=== PATIENT | male | born 1975 | race Caucasian/White ===

== ENCOUNTER 2018-02-01 09:40 | Inpatient (IN) | payer OTHER ==
[~2018-02-01] VITALS: Ht 188 cm; Wt 120.0 kg
[2018-02-01 11:01] LABS: BASOPHILS # (AUTO) 0.03 x10^3/uL (0-0.1); BASOPHILS % (AUTO) 1 % (0-1); EOSINOPHILS # (AUTO) 0.47 x10^3/uL (0-0.4); EOSINOPHILS % (AUTO) 13 % (1-7); LYMPHOCYTES # (AUTO) 0.97 x10^3/uL (1-3.4); LYMPHOCYTES % (AUTO) 27 % (22-44); MD NO; MEAN CORPUSCULAR HEMOGLOBIN 30.5 pg (27.5-34.5); MEAN CORPUSCULAR HGB CONC 34.4 g/dL (33.2-36.2); MEAN CORPUSCULAR VOLUME 88.8 fL (81-97); MEAN PLATELET VOLUME 8.3 fL (7.4-10.4); MONOCYTES # (AUTO) 0.45 x10^3/uL (0.2-0.8); MONOCYTES % (AUTO) 12 % (2-9); NEUTROPHILS # (AUTO) 1.75 x10^3/uL (1.8-6.8); NEUTROPHILS % (AUTO) 48 % (42-75); PLATELET COUNT 196 x10^3/uL (130-400); RED BLOOD COUNT 4.94 x10^6/uL (4.38-5.82); RED CELL DISTRIBUTION WIDTH 12.3 % (9.4-14.8)
[2018-02-01 11:08] LABS: INTERNATIONAL NORMALIZED RATIO 0.9 (0.93-1.1); PROTHROMBIN TIME 9.4 Seconds (9.6-11.5)
[2018-02-01 11:13] LABS: ALANINE AMINOTRANSFERASE 199 U/L (12-78); ALBUMIN 3.8 g/dL (3.4-5.0); ANION GAP 7 mmol/L (5-15); CALCIUM 8.8 mg/dL (8.5-10.1); CHLORIDE 108 mmol/L (98-107)
[2018-02-01 11:19] LABS: ALKALINE PHOSPHATASE 137 U/L (45-117); BILIRUBIN,TOTAL 4.7 mg/dL (0.2-1.0); TOTAL PROTEIN 7.4 g/dL (6.4-8.2)
[2018-02-01] MEDS ORDERED: CEFOTETAN PMX 1GM/50ML 50 ML ONE (12:48)
[2018-02-01] MEDS ORDERED: CEFOTETAN PMX 1GM/50ML 50 ML IV ONE (13:00)
[2018-02-01] MEDS ORDERED: ONDANSETRON 2MG/ML, 2ML IVPush PRN (14:00)
[2018-02-01] MEDS ORDERED: hydrALAzine 20 MG/ML, 1ML IVPush PRN (14:00)
[2018-02-01] MEDS ORDERED: morphine SULFATE 10 MG/ML, 1ML IVPush PRN (14:00)
[2018-02-01 14:08] VITALS: BP 140/90
[2018-02-01] MEDS: D5%-0.45NACL+KCL 20MEQ 1,000 ML IV SCH (16:21)
[2018-02-01 19:09] VITALS: BP 129/85
[2018-02-01] MEDS ORDERED: DIPHENHYDRAMINE 50 MG/ML, 1ML IVPush ONE (23:00)
[2018-02-02] MEDS: D5%-0.45NACL+KCL 20MEQ 1,000 ML IV SCH (02:10)
[2018-02-02 02:38] VITALS: BP 127/81
[2018-02-02 05:27] LABS: BASOPHILS # (AUTO) 0.04 x10^3/uL (0-0.1); BASOPHILS % (AUTO) 1 % (0-1); EOSINOPHILS # (AUTO) 0.51 x10^3/uL (0-0.4); EOSINOPHILS % (AUTO) 13 % (1-7); LYMPHOCYTES # (AUTO) 1.36 x10^3/uL (1-3.4); LYMPHOCYTES % (AUTO) 34 % (22-44); MD NO; MEAN CORPUSCULAR HEMOGLOBIN 30.7 pg (27.5-34.5); MEAN CORPUSCULAR HGB CONC 34.3 g/dL (33.2-36.2); MEAN CORPUSCULAR VOLUME 89.3 fL (81-97); MONOCYTES # (AUTO) 0.49 x10^3/uL (0.2-0.8); MONOCYTES % (AUTO) 12 % (2-9); NEUTROPHILS # (AUTO) 1.62 x10^3/uL (1.8-6.8); NEUTROPHILS % (AUTO) 40 % (42-75); PLATELET COUNT 174 x10^3/uL (130-400); RED BLOOD COUNT 4.38 x10^6/uL (4.38-5.82); RED CELL DISTRIBUTION WIDTH 12.2 % (9.4-14.8)
[2018-02-02 05:39] LABS: CHLORIDE 111 mmol/L (98-107)
[2018-02-02 05:52] LABS: ALANINE AMINOTRANSFERASE 167 U/L (12-78); ALBUMIN 3.3 g/dL (3.4-5.0); ALKALINE PHOSPHATASE 123 U/L (45-117); ANION GAP 8 mmol/L (5-15); BILIRUBIN,TOTAL 4.8 mg/dL (0.2-1.0); CALCIUM 8.6 mg/dL (8.5-10.1); TOTAL PROTEIN 6.4 g/dL (6.4-8.2)
[2018-02-02 06:43] VITALS: BP 126/83
[2018-02-02] MEDS: SODIUM CHLORIDE FLUSH 10ML SYR IVF SCH (12:30)
[2018-02-02 14:04] VITALS: BP 131/86
[2018-02-02] MEDS ORDERED: BUPIVACAINE/PF 0.5% ONE (16:35)
[2018-02-02] MEDS ORDERED: EPINEPHRINE 1 MG/ML, 1ML ONE (16:35)
[2018-02-02] MEDS ORDERED: MIDAZOLAM 1 MG/ML, 2ML ONE (16:54)
[2018-02-02] MEDS ORDERED: FENTANYL PF 250 MCG/5ML ONE (16:54)
[2018-02-02] MEDS ORDERED: CEFOTETAN 2 GM ONE (17:38)
[2018-02-02] MEDS ORDERED: ROCURONIUM 10 MG/ML,10ML ONE (17:38)
[2018-02-02] MEDS ORDERED: FENTANYL PF 100 MCG/2ML IV PRN (18:00)
[2018-02-02] MEDS ORDERED: PROMETHAZINE 25 MG/ML, 1ML IV PRN (18:00)
[2018-02-02] MEDS ORDERED: MORPHINE SULFATE 4 MG/ML, 1ML IVPush PRN (18:00)
[2018-02-02] MEDS ORDERED: HYDROcodone/APAP 7.5-325MG/15ML UDC PO PRN (18:00)
[2018-02-02] MEDS ORDERED: OXYcodone 5 MG/5 ML ORAL.SOL UDC PO PRN (18:00)
[2018-02-02] MEDS ORDERED: ACETAMINOPHEN 325 MG TABLET PO PRN (18:00)
[2018-02-02] MEDS ORDERED: ONDANSETRON ODT 8 MG PO PRN (18:00)
[2018-02-02] MEDS ORDERED: MEPERIDINE/PF 25MG/0.5ML IVPush PRN (18:00)
[2018-02-02] MEDS ORDERED: BUPIVACAINE/PF 0.5% INFIL ONE (18:07)
[2018-02-02] MEDS ORDERED: EPINEPHRINE 1 MG/ML, 1ML INFIL ONE (18:08)
[2018-02-02] MEDS ORDERED: ONDANSETRON 2MG/ML, 2ML ONE (18:18)
[2018-02-02] MEDS ORDERED: NEOSTIGMINE 1 MG/ML, 10ML ONE (18:18)
[2018-02-02] MEDS ORDERED: SUCCINYLCHOLINE 20 MG/ML, 10ML ONE (18:18)
[2018-02-02] MEDS ORDERED: CEFAZOLIN 1,000 MG ONE (18:18)
[2018-02-02] MEDS ORDERED: DEXAMETHASONE 4 MG/ML, 1ML ONE (18:18)
[2018-02-02] MEDS ORDERED: PROPOFOL 10 MG/ML, 20ML ONE (18:18)
[2018-02-02] MEDS ORDERED: GLYCOPYRROLATE 0.2MG/1ML, 5ML ONE (18:18)
[2018-02-02] MEDS ORDERED: PROMETHAZINE 25 MG/ML, 1ML IM PRN (18:30)
[2018-02-02] MEDS ORDERED: morphine SULFATE 10 MG/ML, 1ML IV PRN (18:30)
[2018-02-02] MEDS ORDERED: hydrALAzine 20 MG/ML, 1ML IV PRN (18:30)
[2018-02-02] MEDS ORDERED: ENALAPRILAT 1.25 MG/ML, 2ML IV PRN (18:30)
[2018-02-02] MEDS ORDERED: LORazepam 2 MG/ML, 1ML IV PRN (18:30)
[2018-02-02] MEDS ORDERED: PROMETHAZINE 12.5 MG SUPP PR PRN (18:30)
[2018-02-02] MEDS ORDERED: DIPHENHYDRAMINE 25 MG CAPSULE PO PRN (18:30)
[2018-02-02] MEDS ORDERED: ONDANSETRON 2MG/ML, 2ML IVPush PRN (18:30)
[2018-02-02] MEDS ORDERED: LORazepam 1MG TABLET PO PRN (18:30)
[2018-02-02] MEDS ORDERED: DIPHENHYDRAMINE 50 MG/ML, 1ML IV PRN (18:30)
[2018-02-02] MEDS ORDERED: OXYcodone 5 MG/5 ML ORAL.SOL UDC ONE (18:35)
[2018-02-02] MEDS ORDERED: FENTANYL PF 100 MCG/2ML ONE (18:35)
[2018-02-02 19:32] VITALS: BP 150/100
[2018-02-02] MEDS: FAMOTIDINE 20 MG/2 ML IV SCH (20:18)
[2018-02-02] MEDS: OXYcodone 5 MG/5 ML ORAL.SOL UDC PO PRN (21:46)
[2018-02-03 00:39] VITALS: BP 141/98
[2018-02-03] MEDS: LACTATED RINGERS 1,000 ML IV SCH ×3 (01:12→20:02)
[2018-02-03] MEDS: OXYcodone 5 MG/5 ML ORAL.SOL UDC PO PRN ×2 (03:19→18:05)
[2018-02-03 05:36] LABS: BASOPHILS # (AUTO) 0.03 x10^3/uL (0-0.1); BASOPHILS % (AUTO) 0 % (0-1); EOSINOPHILS # (AUTO) 0.02 x10^3/uL (0-0.4); EOSINOPHILS % (AUTO) 0 % (1-7); LYMPHOCYTES # (AUTO) 0.83 x10^3/uL (1-3.4); LYMPHOCYTES % (AUTO) 10 % (22-44); MD NO; MEAN CORPUSCULAR HEMOGLOBIN 30.9 pg (27.5-34.5); MEAN CORPUSCULAR HGB CONC 34.4 g/dL (33.2-36.2); MEAN PLATELET VOLUME 8.3 fL (7.4-10.4); MONOCYTES # (AUTO) 0.38 x10^3/uL (0.2-0.8); MONOCYTES % (AUTO) 5 % (2-9); NEUTROPHILS # (AUTO) 7.31 x10^3/uL (1.8-6.8); NEUTROPHILS % (AUTO) 85 % (42-75); PLATELET COUNT 198 x10^3/uL (130-400); RED BLOOD COUNT 4.71 x10^6/uL (4.38-5.82); RED CELL DISTRIBUTION WIDTH 12.1 % (9.4-14.8)
[2018-02-03 05:39] LABS: ALANINE AMINOTRANSFERASE 339 U/L (12-78); ALBUMIN 3.4 g/dL (3.4-5.0); ANION GAP 10 mmol/L (5-15); CALCIUM 8.6 mg/dL (8.5-10.1); CHLORIDE 105 mmol/L (98-107); CREATININE 0.87 mg/dL (0.7-1.3)
[2018-02-03 05:45] LABS: BILIRUBIN,TOTAL 6.8 mg/dL (0.2-1.0)
[2018-02-03 05:46] LABS: ALKALINE PHOSPHATASE 131 U/L (45-117); TOTAL PROTEIN 6.8 g/dL (6.4-8.2)
[2018-02-03] MEDS: FAMOTIDINE 20 MG/2 ML IV SCH ×2 (07:46→20:02)
[2018-02-03 07:49] VITALS: BP 154/94
[2018-02-03] MEDS: SODIUM CHLORIDE FLUSH 10ML SYR IVF SCH ×2 (09:00→20:00)
[2018-02-03] MEDS ORDERED: ACETAMINOPHEN 325 MG TABLET PO PRN (10:30)
[2018-02-03 14:05] VITALS: BP 161/104
[2018-02-03 18:55] VITALS: BP 150/97
[2018-02-03 21:14] VITALS: BP 151/94
[2018-02-03] MEDS: IBUPROFEN 200 MG TABLET PO PRN ×2 (22:29→23:09)
[2018-02-04 01:14] VITALS: BP 144/82
[2018-02-04] MEDS: LACTATED RINGERS 1,000 ML IV SCH ×3 (04:25→20:07)
[2018-02-04 05:11] LABS: ALANINE AMINOTRANSFERASE 488 U/L (12-78); ALBUMIN 3.2 g/dL (3.4-5.0); ANION GAP 7 mmol/L (5-15); BILIRUBIN, DIRECT 5.2 mg/dL (0.1-0.2); CALCIUM 8.5 mg/dL (8.5-10.1); CHLORIDE 105 mmol/L (98-107); CREATININE 0.81 mg/dL (0.7-1.3)
[2018-02-04 05:12] LABS: ALKALINE PHOSPHATASE 157 U/L (45-117); BILIRUBIN,INDIRECT 1.5 mg/dL (0.0-2.0); BILIRUBIN,TOTAL 6.7 mg/dL (0.2-1.0); TOTAL PROTEIN 6.2 g/dL (6.4-8.2)
[2018-02-04 05:14] LABS: BASOPHILS # (AUTO) 0.02 x10^3/uL (0-0.1); BASOPHILS % (AUTO) 0 % (0-1); EOSINOPHILS # (AUTO) 0.21 x10^3/uL (0-0.4); EOSINOPHILS % (AUTO) 3 % (1-7); LYMPHOCYTES % (AUTO) 16 % (22-44); MD NO; MEAN CORPUSCULAR HEMOGLOBIN 31.1 pg (27.5-34.5); MEAN CORPUSCULAR HGB CONC 34.2 g/dL (33.2-36.2); MEAN CORPUSCULAR VOLUME 90.7 fL (81-97); MEAN PLATELET VOLUME 8.4 fL (7.4-10.4); MONOCYTES # (AUTO) 0.44 x10^3/uL (0.2-0.8); MONOCYTES % (AUTO) 6 % (2-9); NEUTROPHILS # (AUTO) 5.11 x10^3/uL (1.8-6.8); NEUTROPHILS % (AUTO) 74 % (42-75); PLATELET COUNT 180 x10^3/uL (130-400); RED CELL DISTRIBUTION WIDTH 12.5 % (9.4-14.8)
[2018-02-04 08:10] VITALS: BP 157/90
[2018-02-04] MEDS: FAMOTIDINE 20 MG/2 ML IV SCH ×2 (08:14→20:07)
[2018-02-04] MEDS: SODIUM CHLORIDE FLUSH 10ML SYR IVF SCH ×2 (08:14→20:07)
[2018-02-04] MEDS ORDERED: LABETALOL 5MG/ML, 20ML IVPush PRN (09:30)
[2018-02-04 10:37] VITALS: BP 167/105
[2018-02-04 12:41] LABS: % IRON SATURATION 16 % (20-55); IRON LEVEL 41 mcg/dL (65-175); TOTAL IRON BINDING CAPACITY 253 mcg/dL (250-450)
[2018-02-04 12:48] LABS: ACETAMINOPHEN < 2 mcg/mL (10-30)
[2018-02-04 13:56] VITALS: BP 168/116
[2018-02-04 16:00] LABS: INTERNATIONAL NORMALIZED RATIO 0.93 (0.93-1.1); PROTHROMBIN TIME 9.7 Seconds (9.6-11.5)
[2018-02-04 19:00] VITALS: BP 171/104
[2018-02-04] MEDS: IBUPROFEN 200 MG TABLET PO PRN (20:07)
[2018-02-04 21:24] VITALS: BP 165/93
[2018-02-05 00:30] VITALS: BP 154/101
[2018-02-05 00:38] VITALS: BP 142/94
[2018-02-05] MEDS: LACTATED RINGERS 1,000 ML IV SCH ×2 (04:24→12:30)
[2018-02-05 05:29] LABS: BASOPHILS # (AUTO) 0.05 x10^3/uL (0-0.1); BASOPHILS % (AUTO) 1 % (0-1); EOSINOPHILS # (AUTO) 0.39 x10^3/uL (0-0.4); EOSINOPHILS % (AUTO) 8 % (1-7); LYMPHOCYTES # (AUTO) 1.39 x10^3/uL (1-3.4); LYMPHOCYTES % (AUTO) 28 % (22-44); MD NO; MEAN CORPUSCULAR HEMOGLOBIN 30.4 pg (27.5-34.5); MEAN CORPUSCULAR HGB CONC 33.8 g/dL (33.2-36.2); MEAN CORPUSCULAR VOLUME 89.9 fL (81-97); MEAN PLATELET VOLUME 8.3 fL (7.4-10.4); MONOCYTES # (AUTO) 0.39 x10^3/uL (0.2-0.8); MONOCYTES % (AUTO) 8 % (2-9); NEUTROPHILS % (AUTO) 55 % (42-75); PLATELET COUNT 185 x10^3/uL (130-400); RED BLOOD COUNT 4.33 x10^6/uL (4.38-5.82); RED CELL DISTRIBUTION WIDTH 12.2 % (9.4-14.8)
[2018-02-05 05:30] LABS: ALANINE AMINOTRANSFERASE 426 U/L (12-78); ALBUMIN 3.1 g/dL (3.4-5.0); ANION GAP 7 mmol/L (5-15); CALCIUM 8.7 mg/dL (8.5-10.1); CHLORIDE 106 mmol/L (98-107); CREATININE 0.79 mg/dL (0.7-1.3)
[2018-02-05 05:32] LABS: ALKALINE PHOSPHATASE 169 U/L (45-117); BILIRUBIN,TOTAL 6.8 mg/dL (0.2-1.0); TOTAL PROTEIN 6.2 g/dL (6.4-8.2)
[2018-02-05] MEDS ORDERED: ATENOLOL 25 MG TABLET PO SCH (06:00)
[2018-02-05 07:01] VITALS: BP 146/91
[2018-02-05] MEDS: FAMOTIDINE 20 MG/2 ML IV SCH (08:41)
[2018-02-05] MEDS: SODIUM CHLORIDE FLUSH 10ML SYR IVF SCH (08:55)
[2018-02-05 14:00] VITALS: BP 159/108
[2018-02-05] MEDS ORDERED: GLYCERIN ADULT SUPP PR ONE (17:00)
[2018-02-05] MEDS ORDERED: LACTULOSE 20 GM/30 ML UDC PO ONE (17:00)
[2018-02-05] MEDS ORDERED: POLY17PO5 PO (17:02)
[2018-02-05] MEDS ORDERED: AMLO5TAB2 PO (17:02)
[2018-02-05] MEDS ORDERED: CARVEDILOL 3.125 MG TABLET PO SCH (21:00)
[2018-02-08 15:25] LABS: ANA SCREEN POSITIVE (Negative); ANTI-NUCLEAR ANTIBODY PATTERN HOMOGENOUS
== END 2018-02-05 17:41 | disposition home or self-care (01) | DRG 853 ==
LOC: ED 12:29 → EDIP 12:56 → OBSVTOIN 12:56 → INTOOBSV 12:56 → 3NE 13:56 → INTOOBSV 02-04 11:36 → OBSVTOIN 02-04 11:36
PROVIDERS: ADMIT Hospitalist; ATTEND Hospitalist
PROC: 0FT44ZZ Resection of Gallbladder, Percutaneous Endoscopic Approach (ICD-10-PCS; principal; 2018-02-02 16:30)
DX: A41.9 Sepsis, unspecified organism (principal); K83.1 Obstruction of bile duct; K81.0 Acute cholecystitis; D64.9 Anemia, unspecified; F41.9 Anxiety disorder, unspecified; I10 Essential (primary) hypertension; Z82.49 Family history of ischemic heart disease and other diseases of the circulatory system
CPT/HCPCS: 36415; 99285; J3490; S0028; S0074; 71045; 74181; 76700; 80053; 80074; 80307; 82247; 82248; 83516; 83540; 83550; 83605; 83690; 84439; 84443; 85025; 85610; 86038; 86039; 87040; 88304; G0378; J0171; J0690; J1100; J2250; J2405; J2704; J2710; J3010; J0330; J0360; J1200; J3480; J7120

== ENCOUNTER 2018-02-11 09:15 | Day surgery (SDC) | payer OTHER ==
[~2018-02-11] VITALS: Ht 188 cm; Wt 116.8 kg
[~2018-02-11 09:15] MED LIST: AMLO5TAB2 PO; POLY17PO5 PO
[2018-02-11 09:48] VITALS: BP 141/99
[2018-02-11] MEDS ORDERED: PROPOFOL 10 MG/ML, 20ML ONE (12:09)
[2018-02-11] MEDS ORDERED: SUCCINYLCHOLINE 20 MG/ML, 10ML ONE (12:09)
[2018-02-11] MEDS ORDERED: LABETALOL 5MG/ML, 20ML ONE (12:09)
[2018-02-11] MEDS ORDERED: ROCURONIUM 10 MG/ML,10ML ONE (12:09)
[2018-02-11] MEDS ORDERED: OMNIPAQUE 350 MG/ML, 50 ML BOTTLE ONE (13:20)
[2018-02-11 14:37] LABS: ALANINE AMINOTRANSFERASE 252 U/L (12-78); ALBUMIN 3.5 g/dL (3.4-5.0); ANION GAP 6 mmol/L (5-15); CHLORIDE 107 mmol/L (98-107); CREATININE 1.14 mg/dL (0.7-1.3)
[2018-02-11 14:41] LABS: ALKALINE PHOSPHATASE 192 U/L (45-117); BILIRUBIN,TOTAL 7.4 mg/dL (0.2-1.0); TOTAL PROTEIN 7.3 g/dL (6.4-8.2)
== END 2018-02-11 14:30 ==
LOC: OUT 09:15
PROVIDERS: ATTEND Internal Medicine
DX: K83.1 Obstruction of bile duct (principal); I10 Essential (primary) hypertension; D64.9 Anemia, unspecified; F41.9 Anxiety disorder, unspecified; Z90.49 Acquired absence of other specified parts of digestive tract
CPT/HCPCS: 36415; 43262; 74328; 80053; 82103; 82390; 82728; 83516; 84155; 84165; C1769; J0330; J2704; Q9967

== ENCOUNTER 2018-02-22 06:31 | Day surgery (SDC) | payer OTHER ==
[~2018-02-22] VITALS: Ht 188 cm; Wt 117.1 kg
[2018-02-22] MEDS ORDERED: SODIUM CHLORIDE 0.9% 1,000 ML IV SCH (06:55)
[2018-02-22 07:18] VITALS: BP 123/85
[2018-02-22] MEDS ORDERED: AMLO1CAP8 PO (07:22)
[2018-02-22 07:44] LABS: INTERNATIONAL NORMALIZED RATIO 0.89 (0.93-1.1); PROTHROMBIN TIME 9.3 Seconds (9.6-11.5)
[2018-02-22] MEDS ORDERED: LIDOCAINE-MPF 2% ,5ML ONE (07:44)
[2018-02-22] MEDS ORDERED: FENTANYL PF 100 MCG/2ML ONE (08:06)
[2018-02-22] MEDS ORDERED: MIDAZOLAM 1 MG/ML, 5ML ONE (08:06)
== END 2018-02-22 10:10 ==
LOC: RAD 06:31 → OUT 10:10
PROVIDERS: ATTEND Internal Medicine
DX: K81.1 Chronic cholecystitis (principal); I10 Essential (primary) hypertension; Z90.49 Acquired absence of other specified parts of digestive tract
CPT/HCPCS: 36415; 47000; 76942; 85610; 88307; 88313; 99156; 99157; J2250; J3010; J3490; J7030

== ENCOUNTER → 2020-04-25 | Outpatient (CLI) | payer OTHER ==
[~2020-04-25] MED LIST changes: +AMLO-150 PO; +AMLO1CAP9 PO; -AMLO5TAB2 PO; +OMNIPAQUE 350 MG/ML, 100ML BOTTLE ONE
== END | disposition home or self-care (01) ==
LOC: CFH 13:11
PROVIDERS: ATTEND Internal Medicine
DX: K57.10 Diverticulosis of small intestine without perforation or abscess without bleeding (principal); Z90.49 Acquired absence of other specified parts of digestive tract
CPT/HCPCS: 74177; 82565; Q9967